=== PATIENT | female | born 1960 | race Two or more races ===

== ENCOUNTER 2023-03-28 09:41 | Emergency (ER) | payer MEDICAID, OTHER ==
[~2023-03-28] VITALS: Ht 160 cm; Wt 50.0 kg
[2023-03-28 10:49] VITALS: BP 114/75
[2023-03-28] MEDS ORDERED: cefTRIAXone SOD 1,000 MG VL IM ONE (11:30)
[2023-03-28] MEDS ORDERED: IBUP600T27 PO (11:42)
[2023-03-28] MEDS ORDERED: CEPH-510 PO (11:42)
== END 2023-03-28 11:48 | disposition home or self-care (01) ==
LOC: ER 09:41
DX: R19.09 Other intra-abdominal and pelvic swelling, mass and lump (principal); L72.3 Sebaceous cyst; Z88.6 Allergy status to analgesic agent
CPT/HCPCS: 96372; 99283; J0696

== ENCOUNTER 2023-04-16 09:13 | Emergency (ER) | payer MEDICAID ==
[~2023-04-16] VITALS: Ht 162.6 cm; Wt 52.2 kg
[~2023-04-16 09:13] MED LIST: CEPH-510 PO; IBUP-1454 PO
[2023-04-16 09:58] VITALS: BP 144/66
[2023-04-16] MEDS ORDERED: IBUP-1455 PO (12:15)
[2023-04-16] MEDS ORDERED: HYDR-4798 PO (12:15)
== END 2023-04-16 12:49 | disposition home or self-care (01) ==
LOC: ER 09:13
DX: M54.12 Radiculopathy, cervical region (principal); M25.512 Pain in left shoulder; Z88.6 Allergy status to analgesic agent
CPT/HCPCS: 72040; 73030